=== PATIENT | male | born 1995 | race Two or more races ===

== ENCOUNTER 2019-07-18 03:05 | Emergency (ER) | payer MEDICAID, OTHER ==
[~2019-07-18] VITALS: Ht 175.3 cm; Wt 1.0 kg
[~2019-07-18 03:05] MED LIST: ARIP10TA8 PO; DIVA-78 PO
[2019-07-18 04:17] VITALS: BP 153/108
== END 2019-07-18 05:25 | disposition left against medical advice (07) ==
LOC: EMS 03:05
DX: F29 Unspecified psychosis not due to a substance or known physiological condition (principal); F31.9 Bipolar disorder, unspecified; F20.9 Schizophrenia, unspecified; F17.200 Nicotine dependence, unspecified, uncomplicated; F12.90 Cannabis use, unspecified, uncomplicated; F19.90 Other psychoactive substance use, unspecified, uncomplicated; Z88.0 Allergy status to penicillin

== ENCOUNTER 2021-03-12 08:37 | Inpatient (IN) | payer MEDICARE, MEDICAID ==
[~2021-03-12] VITALS: Ht 175.3 cm; Wt 123.1 kg
[2021-03-12] MEDS ORDERED: DiphenhydrAMINE HCL 50 MG/ML VIAL IM ONE (09:45)
[2021-03-12] MEDS ORDERED: HALOPERIDOL LACTATE 5 MG/ML VIAL IM ONE (09:45)
[2021-03-12] MEDS ORDERED: LORazepam 2 MG/ML VIAL IM ONE (09:45)
[2021-03-12 10:09] LABS: BASOPHILS % (AUTO) 0.7 % (0.0-2.0); EOSINOPHILS % (AUTO) 1.4 % (1.0-6.0); HEMATOCRIT 45.8 % (41-53); HEMOGLOBIN 15.3 g/dL (13.5-17.5); LYMPHOCYTES # (AUTO) 2.5 K/uL (1.0-4.8); LYMPHOCYTES % (AUTO) 19.1 % (22.0-44.0); MEAN CORPUSCULAR HEMOGLOBIN 30.8 pg (26.0-34.0); MEAN CORPUSCULAR HGB CONC 33.4 G/dL (31.0-37.0); MEAN CORPUSCULAR VOLUME 92 fL (80-100); MONOCYTES # (AUTO) 0.9 K/uL (0.1-1.0); NEUTROPHILS # (AUTO) 9.5 K/uL (1.8-7.7); NEUTROPHILS % (AUTO) 71.8 % (40.0-70.0); PLATELET COUNT (AUTO) 286 K/uL (150-450); RED BLOOD CELL COUNT(AUTO) 4.96 MIL/uL (4.50-5.90); RED CELL DISTRIBUTION WIDTH 13.9 % (11.5-14.5)
[2021-03-12 10:29] LABS: ANION GAP 9 mmol/L (8-16); CALCIUM, TOTAL 8.9 mg/dL (8.8-10.5); CARBON DIOXIDE 23 mmol/L (22-29); CHLORIDE 104 mmol/L (98-107); CREATININE 0.82 mg/dL (0.60-1.30); GLOMERULAR FILTR. RATE CALC > 60 mL/min (>60); GLUCOSE,RANDOM 104 mg/dL (70-110); SODIUM SERUM 136 mmol/L (136-145); UREA NITROGEN, BLOOD 12 mg/dL (7-18)
[2021-03-12 10:35] LABS: ALANINE AMINOTRANSFERASE 65 U/L (12-78); ALBUMIN 3.6 g/dL (3.4-5.0); ALKALINE PHOSPHATASE 114 U/L (46-116); ASPARTATE AMINOTRANSFERASE 22 U/L (15-37); BILIRUBIN,TOTAL 0.3 mg/dL (0.1-1.0); TOTAL PROTEIN, SERUM 7.7 g/dL (6.4-8.2)
[2021-03-12 11:04] LABS: COVID AG,FIA SOURCE NASOPHARYNGEAL
[2021-03-12 11:13] LABS: AMPHET/METH SCREEN,URINE NEGATIVE (NEGATIVE); BARBITURATE SCREEN, URINE NEGATIVE (NEGATIVE); BENZODIAZEPINES SCREEN,URINE NEGATIVE (NEGATIVE); CANNABINOID SCREEN,URINE NEGATIVE (NEGATIVE); COCAINE SCREEN,URINE NEGATIVE (NEGATIVE); METHADONE SCREEN, URINE NEGATIVE (NEGATIVE); OPIATE SCREEN,URINE NEGATIVE (NEGATIVE); PHENCYCLIDINE SCREEN,URINE NEGATIVE (NEGATIVE)
[2021-03-12] MEDS ORDERED: ZOLPIDEM TARTRATE 10 MG TABLET PO PRN (12:45)
[2021-03-12] MEDS ORDERED: HALOPERIDOL 5 MG TABLET PO PRN (12:45)
[2021-03-12] MEDS ORDERED: LORazepam 2 MG TABLET PO PRN (12:45)
[2021-03-13 01:28] LABS: CHOL/HDL RATIO 6.2 (4.2-7.3); CHOLESTEROL 191 mg/dL (131-200); HDL CHOLESTEROL 31 mg/dL (40-60); LDL CHOL (CALC.) 117 mg/dL (0-130); TRIGLYCERIDES 214 mg/dL (15-150)
[2021-03-13 19:50] VITALS: BP 157/99
[2021-03-14 01:23] VITALS: BP 133/90
[2021-03-14 08:16] VITALS: BP 128/87
[2021-03-14] MEDS ORDERED: BACITRACIN 28 GM OINTMENT TP PRN (09:00)
[2021-03-14] MEDS ORDERED: OLAN10 PO (10:56)
[2021-03-14] MEDS ORDERED: MAGNESIUM HYDROXIDE SUSPENSION 30 ML UDCUP PO PRN (11:15)
[2021-03-14] MEDS ORDERED: CloNIDine HCL 0.1 MG TABLET PO PRN (11:15)
[2021-03-14] MEDS ORDERED: LOPERAMIDE HCL 2 MG CAPSULE PO PRN (11:15)
[2021-03-14] MEDS ORDERED: ONDANSETRON HCL 4 MG TABLET PO PRN (11:15)
[2021-03-14] MEDS ORDERED: NICOTINE 14 MG/24 HOUR PATCH TD PRN (11:15)
[2021-03-14] MEDS ORDERED: ALBUTEROL SULFATE HFA 90 MCG/PUFF 8 GM INHALER IH PRN (11:15)
[2021-03-14] MEDS ORDERED: ACETAMINOPHEN 325 MG TABLET PO PRN (11:15)
[2021-03-14] MEDS ORDERED: PETROLATUM,WHITE 28 GM JELLY TP PRN (11:15)
[2021-03-14] MEDS ORDERED: DOCUSATE SODIUM 100 MG CAPSULE PO PRN (11:15)
[2021-03-14] MEDS ORDERED: GuaiFENesin/D-METHORPHAN [SUGAR-FREE] 200-20MG/10 ML SYRUP UDCUP PO PRN (11:15)
[2021-03-14] MEDS ORDERED: IBUPROFEN 400 MG TABLET PO PRN (11:15)
[2021-03-14] MEDS ORDERED: MAG HYDROX/AL HYDROX/SIMETH ES 30 ML SUSPENSION UDCUP PO PRN (11:15)
[2021-03-14 18:06] VITALS: BP 136/88
[2021-03-14] MEDS: OLANZapine 10 MG TABLET PO SCH (21:00)
[2021-03-15 00:34] VITALS: BP 141/90
[2021-03-15 08:20] VITALS: BP 139/91
[2021-03-15 16:02] VITALS: BP 138/68
[2021-03-15] MEDS: OLANZapine 10 MG TABLET PO SCH (21:00)
[2021-03-16] MEDS ORDERED: LORazepam 2 MG/ML VIAL ONE (00:13)
[2021-03-16] MEDS ORDERED: DiphenhydrAMINE HCL 50 MG/ML VIAL ONE (00:13)
[2021-03-16] MEDS ORDERED: HALOPERIDOL LACTATE 5 MG/ML VIAL ONE (00:13)
[2021-03-16] MEDS ORDERED: DiphenhydrAMINE HCL 50 MG/ML VIAL IM ONE (00:15)
[2021-03-16] MEDS ORDERED: HALOPERIDOL LACTATE 5 MG/ML VIAL IM ONE (00:15)
[2021-03-16] MEDS ORDERED: LORazepam 2 MG/ML VIAL IM ONE (00:15)
[2021-03-16 00:45] VITALS: BP 144/83
[2021-03-16 08:20] VITALS: BP 118/84
[2021-03-16] MEDS: OLANZapine 5 MG TABLET PO SCH ×2 (11:00→21:00)
[2021-03-17 01:08] VITALS: BP 138/80
[2021-03-17 08:04] VITALS: BP 145/86
[2021-03-17 08:14] LABS: BASOPHILS % (AUTO) 0.4 % (0.0-2.0); EOSINOPHILS % (AUTO) 1.6 % (1.0-6.0); HEMATOCRIT 44.1 % (41-53); HEMOGLOBIN 14.9 g/dL (13.5-17.5); LYMPHOCYTES # (AUTO) 3.1 K/uL (1.0-4.8); LYMPHOCYTES % (AUTO) 19.3 % (22.0-44.0); MEAN CORPUSCULAR HEMOGLOBIN 31.3 pg (26.0-34.0); MEAN CORPUSCULAR HGB CONC 33.7 G/dL (31.0-37.0); MEAN CORPUSCULAR VOLUME 93 fL (80-100); MONOCYTES # (AUTO) 0.9 K/uL (0.1-1.0); MONOCYTES % (AUTO) 5.6 % (2.0-9.0); NEUTROPHILS # (AUTO) 11.6 K/uL (1.8-7.7); NEUTROPHILS % (AUTO) 73.1 % (40.0-70.0); PLATELET COUNT (AUTO) 336 K/uL (150-450); RED BLOOD CELL COUNT(AUTO) 4.74 MIL/uL (4.50-5.90); RED CELL DISTRIBUTION WIDTH 13.8 % (11.5-14.5)
[2021-03-17] MEDS: OLANZapine 5 MG TABLET PO SCH ×2 (09:00→20:38)
[2021-03-17] MEDS: MULTIVITAMINS WITH MINERALS, THERAPEUTIC TABLET PO SCH (09:00)
[2021-03-17 17:06] VITALS: BP 138/89
[2021-03-17] MEDS ORDERED: LORazepam 2 MG/ML VIAL IM ONE (22:45)
[2021-03-17] MEDS ORDERED: DiphenhydrAMINE HCL 50 MG/ML VIAL IM ONE (22:45)
[2021-03-17] MEDS ORDERED: HALOPERIDOL LACTATE 5 MG/ML VIAL IM ONE (22:45)
[2021-03-18 08:11] VITALS: BP 140/82
[2021-03-18] MEDS: OLANZapine 5 MG TABLET PO SCH ×2 (08:31→20:07)
[2021-03-18] MEDS: MULTIVITAMINS WITH MINERALS, THERAPEUTIC TABLET PO SCH (08:31)
[2021-03-18] MEDS: BACITRACIN 28 GM OINTMENT TP SCH ×2 (08:31→17:26)
[2021-03-18 16:59] VITALS: BP 130/76
[2021-03-19 03:09] VITALS: BP 135/80
[2021-03-19 08:05] VITALS: BP 134/85
[2021-03-19] MEDS: MULTIVITAMINS WITH MINERALS, THERAPEUTIC TABLET PO SCH (08:41)
[2021-03-19] MEDS: OLANZapine 5 MG TABLET PO SCH ×2 (08:41→20:13)
[2021-03-19] MEDS: BACITRACIN 28 GM OINTMENT TP SCH ×2 (08:41→17:16)
[2021-03-19 11:10] LABS: APPEARANCE,URINE CLEAR (CLEAR); BILIRUBIN,URINE NEGATIVE (NEGATIVE); GLUCOSE, URINE (UA) NEGATIVE (NEGATIVE); KETONES,URINE NEGATIVE (NEGATIVE); LEUKOCYTE ESTERASE ,URINE NEGATIVE (NEGATIVE); NITRATE,URINE NEGATIVE (NEGATIVE); OCCULT BLOOD,URINE NEGATIVE (NEGATIVE); PH,URINE 6.5 (5.0-8.0); PROTEIN,URINE NEGATIVE (NEGATIVE); UROBILINOGEN,URINE 0.2 mg/dL (<=1.0)
[2021-03-19 11:15] LABS: AMPHET/METH SCREEN,URINE NEGATIVE (NEGATIVE); BARBITURATE SCREEN, URINE NEGATIVE (NEGATIVE); BENZODIAZEPINES SCREEN,URINE NEGATIVE (NEGATIVE); CANNABINOID SCREEN,URINE NEGATIVE (NEGATIVE); COCAINE SCREEN,URINE NEGATIVE (NEGATIVE); METHADONE SCREEN, URINE NEGATIVE (NEGATIVE); OPIATE SCREEN,URINE NEGATIVE (NEGATIVE)
[2021-03-19 11:16] LABS: BACTERIA,URINE None Seen /HPF (None Seen); RBC,URINE None Seen /HPF (0-2); WBC,URINE None Seen /HPF (0-5)
[2021-03-19 11:34] LABS: PHENCYCLIDINE SCREEN,URINE NEGATIVE (NEGATIVE)
[2021-03-19 16:00] VITALS: BP 131/80
[2021-03-20 06:46] VITALS: BP 143/92
[2021-03-20 08:10] VITALS: BP 130/90
[2021-03-20] MEDS: MULTIVITAMINS WITH MINERALS, THERAPEUTIC TABLET PO SCH (08:22)
[2021-03-20] MEDS: BACITRACIN 28 GM OINTMENT TP SCH ×2 (08:23→16:37)
[2021-03-20] MEDS: OLANZapine 5 MG TABLET PO SCH ×2 (08:23→21:00)
[2021-03-20 16:07] VITALS: BP 158/91
[2021-03-21] MEDS ORDERED: LORazepam 2 MG TABLET PO PRN (00:15)
[2021-03-21] MEDS ORDERED: ZOLPIDEM TARTRATE 10 MG TABLET PO PRN (00:15)
[2021-03-21 04:36] VITALS: BP 116/82
[2021-03-21 08:03] VITALS: BP 119/73
[2021-03-21] MEDS: MULTIVITAMINS WITH MINERALS, THERAPEUTIC TABLET PO SCH (08:30)
[2021-03-21] MEDS: OLANZapine 5 MG TABLET PO SCH ×2 (08:30→20:46)
[2021-03-21] MEDS: BACITRACIN 28 GM OINTMENT TP SCH ×2 (08:33→16:27)
[2021-03-21 16:07] VITALS: BP 143/90
[2021-03-22 04:27] VITALS: BP 128/78
[2021-03-22 08:05] LABS: COVID AG,FIA SOURCE NASOPHARYNGEAL
[2021-03-22 08:29] VITALS: BP 125/66
[2021-03-22] MEDS: MULTIVITAMINS WITH MINERALS, THERAPEUTIC TABLET PO SCH (09:00)
[2021-03-22] MEDS: BACITRACIN 28 GM OINTMENT TP SCH ×2 (09:00→16:56)
[2021-03-22] MEDS: OLANZapine 5 MG TABLET PO SCH ×2 (09:00→21:00)
[2021-03-22 16:06] VITALS: BP 121/73
[2021-03-23 03:42] VITALS: BP_SYST 118
[2021-03-23 08:38] VITALS: BP 134/73
[2021-03-23] MEDS: OLANZapine 5 MG TABLET PO SCH ×2 (08:51→20:18)
[2021-03-23] MEDS: MULTIVITAMINS WITH MINERALS, THERAPEUTIC TABLET PO SCH (08:51)
[2021-03-23] MEDS: BACITRACIN 28 GM OINTMENT TP SCH ×2 (08:52→16:44)
[2021-03-23 17:18] VITALS: BP 132/81
[2021-03-24 00:17] VITALS: BP 131/76
[2021-03-24] MEDS: MULTIVITAMINS WITH MINERALS, THERAPEUTIC TABLET PO SCH (08:06)
[2021-03-24] MEDS: BACITRACIN 28 GM OINTMENT TP SCH ×2 (08:06→16:30)
[2021-03-24] MEDS: OLANZapine 5 MG TABLET PO SCH (08:06)
[2021-03-24 08:28] VITALS: BP 136/85
[2021-03-24 16:11] VITALS: BP 144/91
[2021-03-24] MEDS: OLANZapine 7.5 MG TABLET PO SCH (20:44)
[2021-03-25 00:25] VITALS: BP 128/70
[2021-03-25 08:11] VITALS: BP 136/77
[2021-03-25] MEDS: MULTIVITAMINS WITH MINERALS, THERAPEUTIC TABLET PO SCH (08:59)
[2021-03-25] MEDS: OLANZapine 7.5 MG TABLET PO SCH ×2 (08:59→20:14)
[2021-03-25] MEDS: BACITRACIN 28 GM OINTMENT TP SCH ×2 (09:30→16:36)
[2021-03-25 16:18] VITALS: BP 143/95
[2021-03-26 00:12] VITALS: BP 139/84
[2021-03-26] MEDS: OLANZapine 7.5 MG TABLET PO SCH ×2 (08:16→21:05)
[2021-03-26] MEDS: MULTIVITAMINS WITH MINERALS, THERAPEUTIC TABLET PO SCH (08:16)
[2021-03-26] MEDS: BACITRACIN 28 GM OINTMENT TP SCH ×2 (08:21→16:44)
[2021-03-26 08:42] VITALS: BP 139/83
[2021-03-26 16:32] VITALS: BP 140/73
[2021-03-27 00:16] VITALS: BP 132/68
[2021-03-27] MEDS: MULTIVITAMINS WITH MINERALS, THERAPEUTIC TABLET PO SCH (08:35)
[2021-03-27] MEDS: OLANZapine 7.5 MG TABLET PO SCH ×2 (08:35→20:17)
[2021-03-27] MEDS: BACITRACIN 28 GM OINTMENT TP SCH ×2 (08:36→16:22)
[2021-03-27 09:41] VITALS: BP 140/74
[2021-03-27 16:11] VITALS: BP 112/79
[2021-03-28 00:42] VITALS: BP 114/78
[2021-03-28 07:55] LABS: FREE T4 (FREE THYROXINE) 0.82 ng/dL (0.76-1.46); THYROID STIMULATING HORMONE 4.24 uIU/mL (0.36-3.74)
[2021-03-28] MEDS: OLANZapine 7.5 MG TABLET PO SCH (08:15)
[2021-03-28] MEDS: MULTIVITAMINS WITH MINERALS, THERAPEUTIC TABLET PO SCH (08:15)
[2021-03-28 08:26] VITALS: BP 135/94
[2021-03-28] MEDS: BACITRACIN 28 GM OINTMENT TP SCH (09:00)
[2021-03-28] MEDS ORDERED: OLAN10 PO (11:58)
== END 2021-03-28 15:08 | disposition home or self-care (01) | DRG 885 ==
LOC: EMS 08:37 → B3A 03-13 17:16 → B2X 03-14 15:02
DX: F25.0 Schizoaffective disorder, bipolar type (principal); R45.851 Suicidal ideations; Z68.41 Body mass index [BMI] 40.0-44.9, adult; F15.90 Other stimulant use, unspecified, uncomplicated; E78.5 Hyperlipidemia, unspecified; E66.9 Obesity, unspecified; D72.829 Elevated white blood cell count, unspecified; Z20.822 Contact with and (suspected) exposure to COVID-19; F41.9 Anxiety disorder, unspecified; F99 Mental disorder, not otherwise specified; F10.10 Alcohol abuse, uncomplicated; Y90.9 Presence of alcohol in blood, level not specified; Z87.891 Personal history of nicotine dependence; Z88.0 Allergy status to penicillin
CPT/HCPCS: 80053; 80061; 80307; 81001; 84439; 84443; 85025; 99285; G0480; J1200; J1630; J2060